=== PATIENT | male | born 1965 | race Caucasian/White ===

== ENCOUNTER 2016-10-05 13:15 | Emergency (ER) | payer OTHER ==
[~2016-10-05 13:15] MED LIST: CO-Q1030 MG PO; CRESTOR40 MG PO; FLEXERIL10 MG PO; GOOD SENSE ASP325 MG PO; METOPROLOL SUCC50 MG PO; MOTRIN 600 MG600 MG PO; VITAMIN D250000 UNIT PO
--- NOTE | 2016-10-05 13:47 | ED CARDIAC/CP/PALPITATIONS ---
History of Present Illness General Chief Complaint: Chest Pain Stated Complaint: SOB/CHEST PAIN/DIZZINESS Source: patient, family Exam Limitations: no limitations Allergies Coded Allergies: Penicillins (Severe, ANAPHYLAXIS 10/05/16) adhesive tape (Intermediate, HIVES FROM "CLOTH TAPE" 10/05/16) Reconcile Medications Aspirin 325 MG TAB 1 TAB PO DAILY HEART (Reported) Beclomethasone Dipropionate (QVAR) 40 MCG/ACTUATION AER.W.ADAP 2 PUF INH BID PRN BREATHING PROBLEMS (Reported) Rinse mouth after Coenzyme Q10 (Co-Q10) 30 MG SGL 1 TAB PO DAILY SUPPLEMENT (Reported) Cyclobenzaprine HCl 10 MG TABLET 1 TAB PO TID PRN MUSCLE SPASMS (Reported) Ergocalciferol (Vitamin D2) (Vitamin D2) 50,000 UNIT CAPSULE 1 CAP PO QSUN SUPPLEMENT (Reported) Ibuprofen (Motrin 600 MG Tab) 600 MG TABLET 1 TAB PO Q6P PRN PAIN Metoprolol Succinate 50 MG TAB.ER.24H 1 TAB PO DAILY HEART (Reported) Rosuvastatin Calcium (Crestor) 40 MG TAB 1 TAB PO DAILY CHOLESTEROL (Reported ) Triage Note: C/O LEFT CHEST PAIN X 40 MINUTES. HX AFIB AND OPEN HEART IN 2012, C/O SOB. Triage Nurses Notes Reviewed? yes HPI: Patient is a 51-year-old male presents complaining of feeling of irregular heartbeats, intermittent chest tightness and mild dyspnea. Patient reports that symptoms onset yesterday, reports feels similar to when he was in atrial fibrillation in the past. Patient felt intermittent skipped beats throughout the day yesterday and when he awoke this morning he felt that his heart was beating more irregularly. No chest tightness currently. Patient believes he may be slightly dehydrated as he has not been drinking a significant amount of fluids over the past 1-2 weeks, and over the past 3 dasy has only had 10-16 ounces of water. Patient is on a medi weight loss diet that is recommended to drink 128 ounces of fluid daily. Denies fevers, chills, increasing lower extremity edema, nausea, diaphoresis. No significant change in symptoms with ambulation. (NEGRO SOTO,TAQUERIA) Vital Signs & Intake/Output Vital Signs & Intake/Output Vital Signs Date Time Temp Pulse Resp B/P Pulse O2 O2 Flow FiO2 Ox Delivery Rate 10/05 1502 98.1 81 16 123/65 96 Nasal 2.0L Cannula 10/05 1433 95 Room Air Room Air 10/05 1332 98.7 82 20 141/90 99 Room Air ED Intake and Output 10/06 0000 10/05 1200 Intake Total 1000 Output Total Balance 1000 Intake, IV 1000 Past History Travel History Traveled to [place] past 21 day No Medical History Any Pertinent Medical History? see below for history Cardiovascular: AFIB, CAD, cardiomyopathy Surgical History Surgical History: Open Maze with myomectomy, cardiac stents 2006 and 2008 Psychosocial History What is your primary language Kiswahili Tobacco Use: Never used Illicit Drug Use: denies illicit drug use Family History Hx Contributory? No (TAQUERIA OLSEN) Review of Systems Review of Systems Constitutional: Denies: chills, fever. EENTM: Reports: no symptoms. Respiratory: Denies: cough, short of breath. Cardiovascular: Reports: see HPI. GI: Reports: no symptoms. Denies: abdominal pain, nausea, vomiting. Genitourinary: Reports: no symptoms. Musculoskeletal: Reports: no symptoms. Skin: Reports: no symptoms. Neurological/Psychological: Reports: no symptoms. Hematologic/Endocrine: Reports: no symptoms. (TAQUERIA OLSEN) Physical Exam Physical Exam General Appearance: alert, awake, obese Head: atraumatic, normal appearance Eyes: Bilateral: normal appearance, PERRL, EOMI. Ears, Nose, Throat: normal pharynx, normal ENT inspection, hearing grossly normal Neck: normal inspection, supple, full range of motion Respiratory: normal breath sounds, chest non-tender, no respiratory distress, lungs clear, surgical scar midsternum, no signs of infection Cardiovascular: irregularly irregular with rapid ventricular rate Gastrointestinal: soft, non-tender Back: normal inspection, normal range of motion Extremities: normal inspection, normal capillary refill, normal range of motion, trace edema bilateral lower extremities Neurologic/Psych: no motor/sensory deficits, awake, alert, oriented x 3 Skin: intact, normal color, warm/dry Lymphatic: no anterior cervical carlyle Core Measures ACS in differential dx? Yes ASA ordered for poss ACS? No-ACS ruled out Severe Sepsis Present: No Septic Shock Present: No (TAQUERIA OLSEN) Progress Differential Diagnosis: AMI, atrial fibrillation, musculoskeletal pain, pulmonary embolism, PVCs/PACs, unstable angina, V-fib/V-Tach, WPW syndrome Diagnostic Imaging: Viewed by Me: Radiology Read. Discussed w/RAD: Radiology Read. CXR Impression: PATIENT: KORIN MAZARIEGOS PRESENT AGE: 51 PATIENT ACCOUNT NO: [id number] : 67 LOCATION: [facility] ORDERING PHYSICIAN: TAQUERIA SOTO SERVICE DATE: 10/05/16-1401 EXAM TYPE: RAD - XRY- PORTABLE CHEST XRAY EXAMINATION: XR PORTABLE CHEST CLINICAL INFORMATION: Chest pain COMPARISON: None. TECHNIQUE: Portable view of the chest was obtained. FINDINGS: Limited secondary to patient body habitus and low lung volumes. Cardiac silhouette appears at the upper limits of normal in size. The patient is status post median sternotomy. Left-sided pacemaker/AICD is noted. No definite focal consolidation, pleural effusion or pneumothorax. Osseous structures appear intact. IMPRESSION: Low lung volumes. No radiographic evidence of acute pulmonary disease. DICTATED BY: TORY GIL DO DATE/TIME DICTATED:10/05/161422 TRUCK MECHANIC:MICHI DATE/TIME TRANSCRIBED:10/05/161422 CONFIDENTIAL, DO NOT COPY WITHOUT APPROPRIATE AUTHORIZATION. <Electronically signed in Other Vendor System> SIGNED BY: TORY GIL DO 10/05/16 1429 Initial ED EKG: atrial fibrillation with left bundle branch block with RVR no previous EKG for comparison Repeat EKG: changed (sinus with LBBB) Rhythm Strip: atrial fibrillation (wide complex) (NEGRO SOTO,TAQUERIA) Plan of Care: Orders Procedure Date/time Status Add-on Test (ER Only) 10/05 1447 Active EKG 10/05 1447 Active THYROID STIMULATING HORMONE 10/05 1416 Complete MAGNESIUM 10/05 1416 Complete Telemetry/Promotions Executive Producer 10/05 1347 Active TROPONIN LEVEL 10/05 1347 Complete PARTIAL THROMBOPLASTIN TIME 10/05 1347 Complete PROTHROMBIN TIME 10/05 1347 Complete COMPREHENSIVE METABOLIC PANEL 10/05 1347 Complete CBC WITHOUT DIFFERENTIAL 10/05 1347 Complete EKG 10/05 1318 Active Laboratory Tests 10/05/16 1416: Anion Gap 15, Estimated GFR > 60, BUN/Creatinine Ratio 20.0, Glucose 105 H, Calcium 9.6, Magnesium 2.1, Total Bilirubin 0.7, AST 27, ALT 47, Alkaline Phosphatase 70, Troponin I 0.01, Total Protein 7.4, Albumin 4.3, Globulin 3.1, Albumin/Globulin Ratio 1.4, TSH 1.900, PT 12.3, INR 1.17, APTT 30, CBC w Diff NO MAN DIFF REQ, RBC 5.90, MCV 81.4, MCH 27.1, RDW 14.9 H, MPV 8.9, Gran % 73.3, Lymphocytes % 14.4 L, Monocytes % 10.1 H, Eosinophils % 1.7, Basophils % 0.5, Absolute Granulocytes 5.8, Absolute Lymphocytes 1.1 L, Absolute Monocytes 0.8 H, Absolute Eosinophils 0.1, Absolute Basophils 0, PUBS MCHC 33.3 1400: Discussed with Dr. Feliciano. 1410: Patient's sister reports patient has gone into atrial fibrillation in the past when he was dehydrated, has had decreased fluid intake over the past 1-2 weeks. 1420: Previous EKg obtained from patient's correction lieutenant office: 07/28/2016, atrial paced complexes with LBBB. Patient returned to sinus rhythm, only Iv fluids administered. Repeat ekg obtained. 1510: Results of labs discussed with patient. Patient resting in stretcher, feels improved, no current complaints. Patient's correction lieutenant, Dr. Ngo, paged to discuss 1535: Discussed with Dr. Ngo: 1st episode of afib since patient's maze procedure. Have the patient increase his metoprolol to 50mg BID, continue the aspirin, follow up closely for further evaluation and will discuss anticoagulation at that time. Patient has an appointment with his correction lieutenant tomorrow afternoon, appears stable for discharge and close follow up. (TAQUERIA OLSEN) Departure Departure Time of Disposition: 1538 Disposition: HOME OR SELF CARE Condition: Stable Clinical Impression Primary Impression: Paroxysmal atrial fibrillation Referrals: MUNA VU,JESUS VALDES MD,SHAYY (PCP/Family) Additional Instructions: Take your Metoprolol 50mg twice a day. Follow up with your correction lieutenant for further evaluation, call this afternoon to be seen tomorrow or early next week for further evaluation. Return to the ER if chest pain, difficulty breathing or worsening of symptoms. Departure Forms: Customer Survey General Discharge Information (TAQUERIA OLSEN) PA/SPANISH INTERPRETER/TRANSLATOR Co-Sign Statement Statement: ED Attending supervision documentation- [X] I saw and evaluated the patient. I have also reviewed all the pertinent lab results and diagnostic results. I agree with the findings and the plan of care as documented in the PA's/SPANISH INTERPRETER/TRANSLATOR's documentation. [] I have reviewed the ED Record and agree with the PA's/SPANISH INTERPRETER/TRANSLATOR's documentation. [] Additions or exceptions (if any) to the PAs/SPANISH INTERPRETER/TRANSLATOR's note and plan are summarized below: [] (ZULEIKA VU,EDITA Long) Critical Care Note Critical Care Note Critical Care Time: non-applicable (NEGRO SOTO,TAQUERIA)
[2016-10-05] MEDS ORDERED: QVAR8.7 GM INH (14:20)
[2016-10-05] MEDS ORDERED: CYCLOBENZAPRINE10 M1 PO (14:21)
[2016-10-05 14:22] LABS: ABSOLUTE BASOPHIL COUNT 0 /CUMM (0.0-0.2); ABSOLUTE EOSINOPHIL COUNT 0.1 /CUMM (0.0-0.7); ABSOLUTE GRANULOCYTE CT 5.8 /CUMM (1.4-6.5); ABSOLUTE LYMPH COUNT 1.1 /CUMM (1.2-3.4); ABSOLUTE MONOCYTE COUNT 0.8 /CUMM (0.10-0.60); BASOPHIL % 0.5 % (0.0-2.0); EOSINOPHIL % 1.7 % (0-5); GRANULOCYTE % 73.3 % (42.2-75.2); HEMATOCRIT 48.1 % (42-52); MEAN CORPUSCULAR HGB 27.1 PG (27.0-31.0); MEAN CORPUSCULAR HGB CONC 33.3 G/DL (33.0-37.0); MEAN CORPUSCULAR VOLUME 81.4 FL (80.0-94.0); MEAN PLATELET VOLUME 8.9 FL (7.4-10.4); PLATELET COUNT 211 /CUMM (130-400); RBC DISTRIBUTION WIDTH 14.9 % (11.5-14.5); WHITE BLOOD CELL COUNT 7.9 /CUMM (4.8-10.8)
--- NOTE | 2016-10-05 14:29 | RADIOLOGY REPORT ---
EXAMINATION: XR PORTABLE CHEST CLINICAL INFORMATION: Chest pain COMPARISON: None. TECHNIQUE: Portable view of the chest was obtained. FINDINGS: Limited secondary to patient body habitus and low lung volumes. Cardiac silhouette appears at the upper limits of normal in size. The patient is status post median sternotomy. Left-sided pacemaker/AICD is noted. No definite focal consolidation, pleural effusion or pneumothorax. Osseous structures appear intact. IMPRESSION: Low lung volumes. No radiographic evidence of acute pulmonary disease.
[2016-10-05 14:33] LABS: PT 12.3 SEC (9.4-12.5); PTT 30 SEC (25-37)
[2016-10-05 15:02] VITALS: BP 123/65
== END 2016-10-05 15:50 ==
LOC: ERH 13:15
PROVIDERS: Physician Assistant
DX: R07.89 Other chest pain (principal); I48.91 Unspecified atrial fibrillation
CPT/HCPCS: 93005; 93010